=== PATIENT | female | born 1955 | race Caucasian/White ===

== ENCOUNTER 2022-07-07 07:51 | Outpatient (CLI) | payer MEDICARE, OTHER, SELFPAY ==
--- NOTE | 2022-07-07 08:15 | CRLHL7_ITS ---
For Patients: As a result of the Century Cures Act, medical imaging exams and procedure reports are released immediately into your electronic medical record. You may view this report before your referring provider. If you have questions, please contact your health care provider. BILATERAL SCREENING MAMMOGRAM WITH COMPUTER-AIDED DETECTION AND TOMOSYNTHESIS TECHNIQUE: CC and MLO views were obtained. These mammographic images have been obtained using full-field digital technique. These mammographic images were interpreted with the benefit of computer-aided detection. Breast tomosynthesis was used in this interpretation. COMPARISON FILM: 01/15/21, 01/15/20, 01/13/19. FINDINGS: There are scattered areas of fibroglandular density. IMPRESSION: There is no radiographic evidence for malignancy. ASSESSMENT: BI-RADS Category 2: Benign RECOMMENDATION: Routine screening mammogram in 1 year. A lay language report of this examination will be provided to the patient. SHIRAZ LARES M.D. Diagnostic Radiologist [email or web address] Transcribed: 07/07/2022, 5:[address]/Dictated by: Shiraz Lares MD @ 07/07/2022 11:09:00 AM (Electronically Signed)
== END 2022-07-07 07:52 | disposition home or self-care (01) ==
LOC: MAMMO 07:53
PROVIDERS: PCP Emergency Medicine; Visit Provider Emergency Medicine
DX: Z12.31 Encounter for screening mammogram for malignant neoplasm of breast (principal)
CPT/HCPCS: 77063; 77067

== ENCOUNTER 2022-07-15 08:51 | Outpatient (CLI) | payer OTHER, SELFPAY | END 2022-07-15 08:52 | disposition home or self-care (01) | PROVIDERS: PCP Emergency Medicine; Visit Provider Emergency Medicine | DX: Z00.00 Encounter for general adult medical examination without abnormal findings (principal); E11.9 Type 2 diabetes mellitus without complications; E78.5 Hyperlipidemia, unspecified; I10 Essential (primary) hypertension; R42 Dizziness and giddiness | CPT/HCPCS: 80061; 80076; 82043; 82570 ==

== ENCOUNTER 2022-10-22 08:46 | Outpatient (CLI) | payer OTHER, SELFPAY | END 2022-10-22 08:47 | disposition home or self-care (01) | LOC: NFLDREF 10-23 14:54 | PROVIDERS: PCP Emergency Medicine; Referring Provider Emergency Medicine; Visit Provider Emergency Medicine | DX: E78.5 Hyperlipidemia, unspecified (principal) | CPT/HCPCS: 80061 ==

== ENCOUNTER 2023-07-08 09:52 | Outpatient (CLI) | payer OTHER, SELFPAY | END 2023-07-08 09:53 | disposition home or self-care (01) | PROVIDERS: PCP Emergency Medicine; Visit Provider Emergency Medicine | DX: E78.2 Mixed hyperlipidemia (principal); I10 Essential (primary) hypertension | CPT/HCPCS: 80053; 80061 ==

== ENCOUNTER 2023-07-20 13:25 | Outpatient (CLI) | payer OTHER, SELFPAY | END 2023-07-20 13:26 | disposition home or self-care (01) | LOC: LKVREF 13:26 | PROVIDERS: PCP Emergency Medicine; Visit Provider Emergency Medicine | DX: E11.9 Type 2 diabetes mellitus without complications (principal) | CPT/HCPCS: 82043; 82570 ==

== ENCOUNTER 2023-08-24 11:08 | Outpatient (CLI) | payer OTHER, SELFPAY ==
--- NOTE | 2023-08-24 11:30 | MM_ITS ---
Patient: DEIDRE DELEON Facility:?[facility] Patient ID:?[id number] Site Patient ID:?[id number] Site :?[id number] Study:?XRay-Breast Bilateral 3D W/CAD-08/24/2023 11:40:05 AM Ordering Physician:?Gissel Marti Final Report: BILATERAL SCREENING MAMMOGRAM WITH COMPUTER-AIDED DETECTION AND TOMOSYNTHESIS TECHNIQUE: CC and MLO views were obtained. These mammographic images have been obtained using full-field digital technique. These mammographic images were interpreted with the benefit of computer-aided detection. Breast Tomosynthesis was used in this interpretation. COMPARISON FILM: 07/07/22, 01/15/21, 01/15/20. FINDINGS: There are scattered areas of fibroglandular density IMPRESSION: There is no radiographic evidence for malignancy. ASSESSMENT: BI-RADS Category 1: Negative RECOMMENDATION: Routine screening mammogram in 1 year. A lay language report of this examination will be provided to the patient. Shiraz Marcial M.D. Diagnostic Radiologist [email or web address] MICHAEL/[email or web address] Transcribed: 2:20 p.mRamakrishna brown/Dictated by: Shiraz Marcial MD @ 08/24/2023 12:48:00 PM Signed by:?Shiraz Marcial MD @08/24/2023 2:58:28 PM (Electronic Signature)
== END 2023-08-24 11:09 | disposition home or self-care (01) ==
LOC: MAMMO 11:10
PROVIDERS: PCP Emergency Medicine; Visit Provider Emergency Medicine
DX: Z12.31 Encounter for screening mammogram for malignant neoplasm of breast (principal)
CPT/HCPCS: 77063; 77067

== ENCOUNTER 2024-01-25 08:04 | Outpatient (CLI) | payer MEDICARE, SELFPAY | END 2024-01-25 08:05 | disposition home or self-care (01) | LOC: LKVREF 08:05 | PROVIDERS: PCP Emergency Medicine; Visit Provider Emergency Medicine | DX: E78.2 Mixed hyperlipidemia (principal) | CPT/HCPCS: 80061 ==

== ENCOUNTER 2024-12-28 08:26 | Outpatient (CLI) | payer MEDICARE, SELFPAY | END 2024-12-28 08:27 | disposition home or self-care (01) | LOC: NFLDREF 01-01 03:51 | PROVIDERS: PCP Physician Assistant Medical; Referring Provider Emergency Medicine; Visit Provider Physician Assistant Medical | DX: Z00.00 Encounter for general adult medical examination without abnormal findings (principal); E78.5 Hyperlipidemia, unspecified | CPT/HCPCS: 80053; 80061; 82043; 82570 ==